=== PATIENT | female | born 2000 ===

== ENCOUNTER 2023-06-08 19:26 | Emergency (ER) | payer MEDICAID, SELFPAY ==
[2023-06-08 19:45] VITALS: BP 125/70; PULSE 92; RESP 18; TEMP 36.9; O2SAT 100; BMI 42.0
--- NOTE | 2023-06-08 20:06 | ED_ITS ---
HPI - Animal Bite General Chief Complaint: Animal Bite Stated Complaint: was bitten on both hands by thumb, numbness Time Seen by Provider: 06/08/23 19:49 Source: patient Mode of arrival: ambulatory Limitations: no limitations History of Present Illness HPI narrative: patient comes to the emergency room complaining of dog bites to both hands. Earlier today, patient was doing laundry, and patient reached down to grab the basket, the dog attacked her and bit her in both hands. Patient states that she recently moved to the house with a dog lives. The dog belongs to the patient's cousin. The dog has history of aggression and has bitten multiple people in the past. Patient states that she does not remember when she had her last tetanus shot. patient's cousin is at bedside who is the dog funeral director/embalmer/owner. The dog is up-to-date with all of the immunizations including rabies. Related Data Previous Rx's Medication Instructions Recorded amoxicillin 500 mg-potassium 1 tab PO BID #13 tabs 06/08/23 clavulanate 125 mg tablet (Augmentin) ibuprofen 600 mg tablet 600 mg PO TID PRN fever or pain 06/08/23 #20 tabs neomycin-bacitracn Zn-polymyx 3.5 1 appl topical TID #28.3 grams 06/08/23 mg-400 unit-5,000 unit/gram top oint (Neosporin ([id number])) Allergies Allergy/AdvReac Type Severity Reaction Status Date / Time No Known Allergies Allergy Verified 06/08/23 19:56 Review of Systems Review of Systems: Constitutional : No Weight loss, No Fever, No Chills, No Night Sweats, No Fatigue, No Malaise ENT/Mouth : No Hearing loss, No Ear Pain, No Nasal Congestion, No Sinus Pain, No Hoarseness, No sore throat, No Rhinorrhea, No Swallowing Difficulty Eyes: No Eye Pain, No Swelling, No Redness, No Foreign Body, No Discharge, No Vision Changes Cardiovascular : No Chest Pain, No SOB, No Dyspnea on Exertion, No Orthopnea, No Edema, No Palpitations Respiratory : No Cough, No Sputum, No Wheezing, No Smoke Exposure, No Dyspnea Gastrointestinal : No Nausea, No Vomiting, No Diarrhea, No Constipation, No abdominal Pain, No Hematochezia, No Melena Genitourinary : no irregular bleeding, No Dysuria, No Urinary Frequency, No Hematuria, No Urinary Incontinence, No Urgency, No Flank Pain, No Urinary Flow Changes, No Hesitancy Musculoskeletal : No joint pain, No Myalgias, No Joint Swelling Skin : Multiple skin bites to dorsum and palmar aspects of both hands Neuro : No Weakness, No Numbness, No Paresthesias, No Loss of Consciousness, No Dizziness, No Headache Psych : No Anxiety/Panic, No Depression, No SI/HI/AH/VH, No Social Issues, Heme/Lymph: No Bruising, No Bleeding,No Lymphadenopathy Endocrine : No Polyuria, No Polydipsia, No Temperature Intolerance [facility] Social History Social History Alcohol intake: never Smoked in Last 30 Days: No Use of substances other than those prescribed or required for medical reasons: No Advance Directives: No Advance Directives Information Provided: No Physical Exam ED Vital Signs: Vital Signs - 24 hr 06/08/23 19:45 Temperature 98.4 F Pulse Rate 92 Respiratory Rate 18 Blood Pressure 125/70 Pulse Oximetry 100 Oxygen Delivery Method Room Air BMI result Body Mass Index 42.0 Const Other: Appearance: Alert. Oriented X3. No acute distress. Eyes: Pupils equal, round and reactive to light. ENT: Pharynx normal. Neck: Normal inspection. Neck supple. No lymph nodes noted. No crepitus CVS: Normal heart rate and rhythm. Pulses normal. Normal S1 and S2 Respiratory: No respiratory distress. Breath sounds normal. No Wheezing. No rales Abdomen: Soft and nontender. No rigidity. No distention. Skin: multiple dog bites/puncture wounds to the dorsum and power rasp of both hands Extremities: No lower extremity edema. No Lacerations. No Rash Neuro: Oriented X 3. No motor deficit. No sensory deficit. Moving all extremities. No slurred speech. CN 2 through 12 grossly intact Psych: calm, cooperative, normal affect Course Course Course Narrative: - discussed with the patient that she will need antibiotics, 1st dose of Augmentin given in the emergency room, Tdap booster - patient's hands will be thoroughly cleaned, discussed with the patient that stitches are not indicated for wounds in the hands since this considered a contaminated wound Medications Administered Discontinued Medications Generic Name Dose Route Start Last Admin Trade Name Freq PRN Reason Stop Dose Admin Amoxicillin/Clavulanate Potassium 875 mg 06/08/23 20:06 06/08/23 20:15 Amoxicillin/Potassium Clav 875 Mg Tablet PO 06/08/23 20:07 875 mg ONCE ONE Administration Diphtheria/Tetanus/Acell Pertussis 0.5 ml 06/08/23 19:56 06/08/23 20:15 Diphth,Pertus(Acell),Tet Adult 0.5 Ml Syringe IM 06/08/23 19:57 0.5 ml .ONCE ONE Administration Tramadol HCl 50 mg 06/08/23 20:01 06/08/23 20:14 Tramadol Hcl 50 Mg Tablet PO 06/08/23 20:02 50 mg ONCE ONE Administration Discharge Plan Discharge Clinical Impression: Dog bite Patient Disposition: Home, Self-Care Instructions: Animal Bite (ED) Additional Instructions: if you see any signs of infections including redness, pus drainage, fever or chills, please return to the emergency room, it is likely that you will have to be admitted if this is the case. Make sure that you finish taking the entire course of antibiotics. Please follow-up with your primary care physician tomorrow. If you have any worsening or new symptoms, please return to the emergency room or call 911 Prescriptions: New amoxicillin-pot clavulanate [Augmentin] 500-125 mg tablet 1 tab PO BID Qty: 13 0RF ibuprofen 600 mg tablet 600 mg PO TID PRN (Reason: fever or pain) Qty: 20 0RF Neosporin ([id number]-[id number]-[id number]) 3.5mg-400 unit- 5,000 unit/gram ointment 1 appl topical TID Qty: 28.3 0RF
[2023-06-08] MEDS: traMADoL HCL 50 MG TABLET PO (20:14)
[2023-06-08] MEDS: Amoxicillin/Potassium Clav 875 MG TABLET PO (20:15)
[2023-06-08] MEDS: Diphth,Pertus(ACell),Tet Adult 0.5 ML SYRINGE IM (20:15)
[2023-06-08 21:30] VITALS: BP 148/86; PULSE 100; O2SAT 96
[2023-06-08 21:31] VITALS: BP 138/82; PULSE 89; RESP 18; TEMP 36.9; O2SAT 99
--- NOTE | 2023-06-08 21:31 | PC.NURSE ---
[facility] [employer] notified of dog bite via fax. Patient received tetanus vaccine at ED, patient refused series of rabies vaccines d/t per patient's cousin/dog enrollment management director's report dog's vaccines are up to date.
== END 2023-06-08 21:35 | disposition home or self-care (01) ==
PROVIDERS: Emergency Provider Emergency Medicine
DX: S61.451A Open bite of right hand, initial encounter (principal); S61.452A Open bite of left hand, initial encounter; S60.512A Abrasion of left hand, initial encounter; S60.511A Abrasion of right hand, initial encounter; W54.0XXA Bitten by dog, initial encounter; Y93.9 Activity, unspecified; Y92.9 Unspecified place or not applicable; Y99.9 Unspecified external cause status; Z23 Encounter for immunization
CPT/HCPCS: 90471; 90715; 99284

== ENCOUNTER 2023-06-11 13:59 | Outpatient (REF) | payer MEDICAID, SELFPAY ==
--- NOTE | ~2023-06-11 | XR_ITS ---
EXAMINATION: XR HAND, RIGHT CLINICAL INFORMATION: Injury. Animal bite, dog bite on palm on 06/08/2003 COMPARISON: None available. TECHNIQUE: PA, lateral, and oblique views of the right hand. FINDINGS: There is soft tissue swelling, particularly along the palmar side of the hand. The bones are intact No fracture. Minor ulnar variance is noted. Joint spaces are maintained. No erosions or soft tissue calcifications. XR/XR hand RT min 3V IMPRESSION: No acute bony abnormality.
== END 2023-06-11 14:00 | disposition home or self-care (01) ==
LOC: HO.HHCX 13:59
PROVIDERS: Visit Provider Internal Medicine
DX: S61.451D Open bite of right hand, subsequent encounter (principal); W54.0XXD Bitten by dog, subsequent encounter
CPT/HCPCS: 73130

== ENCOUNTER 2024-04-26 07:20 | Emergency (ER) | payer OTHER, SELFPAY ==
[2024-04-26 07:26] VITALS: BP 132/78; PULSE 82; RESP 16; TEMP 36.9; O2SAT 98; BMI 39.9
--- NOTE | 2024-04-26 07:38 | ED.GENADULT ---
HPI - General Adult General Chief complaint: General Medical Stated complaint: lip irritation ? allergy Time Seen by Provider: 04/26/24 07:23 Source: patient Mode of arrival: ambulatory Limitations: no limitations History of Present Illness ED Provider: ELLY SALINAS narrative: 24 yo female with no PMH here with c/o lower lip swelling and irritation with blisters on the inner lower lip and and external lip. She denies hx of HSV. She is very guarded and upset. Denies any other swelling. She denies any other blisters. States she was told by a healthcare provider yesterday that she possibly had HSV but the patient doesn't understand how this happened and wants answers. Patient thought it was apple pie she ate on . complaint: lip swelling/lesions Onset (ago): day(s) (/Sunday) Location: mouth Radiation: non-radiation Severity: mild Quality: aching Pain Consistency: intermittent Relieving factors: none Exacerbating factors: other (touching lip) Associated symptoms: denies other symptoms Treatments prior to arrival: none Related Data Previous Rx's ?Medication ?Instructions ?Recorded amoxicillin 500 mg-potassium 1 tab PO BID #13 tabs 06/08/23 clavulanate 125 mg tablet (Augmentin) ibuprofen 600 mg tablet 600 mg PO TID PRN fever or pain 06/08/23 #20 tabs neomycin-bacitracn Zn-polymyx 3.5 1 appl topical TID #28.3 grams 06/08/23 mg-400 unit-5,000 unit/gram top oint (Neosporin (bog-via-meori)) prednisone 20 mg tablet 40 mg (2 x 20 mg) PO DAILY 2 days 04/26/24 #4 tabs valacyclovir 1 gram tablet 1,000 mg PO BID #14 tabs 04/26/24 (Valtrex) Allergies Allergy/AdvReac Type Severity Reaction Status Date / Time No Known Allergies Allergy Verified 04/26/24 07:27 Review of Systems Review of Systems: Constitutional : No Fever, No Chills ENT/Mouth : No sore throat, No Rhinorrhea, pos lip swelling, pos blisters on lip Eyes: No Eye Pain, No Swelling, No Redness Cardiovascular : No Chest Pain, No SOB Respiratory : No Cough, No Sputum Gastrointestinal : No Nausea, No Vomiting, No Diarrhea, No abdominal Pain Skin : No Skin Lesions, no skin rash Neuro : No Weakness, No Numbness, No Headache All other systems reviewed and are negative [facility] Past Medical History Attestation statement: The following information was validated with the patient. Source: old records reviewed Medical History No pertinent past medical history Social History Social History (Updated 04/26/24 @ 07:45 by Adelina Genao DO) Alcohol intake: never Patient Tobacco Use Status: Never used Tobacco Physical Exam ED Vital Signs: Vital Signs - 24 hr 04/26/24 07:26 Temperature 98.4 F Pulse Rate 82 Respiratory Rate 16 Blood Pressure 132/78 Pulse Oximetry 98 Oxygen Delivery Method Room Air BMI result Body Mass Index 39.9 Appearance: Alert. Oriented X3. No acute distress. Eyes: Pupils equal, round and reactive to light. ENT: lower lip moderate swelling external crusting yellow vesicle x 3 midline of lip on the inside there is a patch of vesicles as well - no signs of cellulitis or purulence Neck: Normal inspection. CVS: Pulses normal. Respiratory: No respiratory distress. Abdomen: atraumatic Skin: Skin warm and dry. Normal skin color. Extremities: No lower extremity edema. Neuro: Oriented X 3. No motor deficit. No sensory deficit. Medical Decision Making Medical Decision Making [facility] Narrative: 24 yo female with no sig PMH here with herpetic lesions and localized swelling to bottom lip no resp issues - her exam and history is consistent with HSV at this time will start on low dose steroid for swelling, valtrex she is asking to be tested for HSV - she is very upset she has now been told by two healthcare providers she has HSV. I did try to offer support and educate patient about diagnosis while she was here. Differential Diagnosis Differential Diagnoses: The differential diagnosis associated with the presentation includes localized reaction, HSV Lab Data [facility] Lab Attestation statement: I reviewed the patient's lab results. Prescription Management I considered prescription management with: Antiviral and Other Discharge Plan Discharge Clinical Impression: Blister of lip, Oral herpes simplex infection Patient Disposition: Home, Self-Care Instructions: Oral Herpes Simplex Virus Infections (ED), Blister (ED) Additional Instructions: your presentation is concerning for herpes simplex infection of the mouth this is contagious when vesicles are out and until they are healed. you are also contagious if you get symptoms leading up to vesicles (blisters) such as a fever, lip pain tingling or swelling. you need to get a primary care doctor to help manage this. you may never get another eruption again or you may have more in the future. return for worsening symptoms, swelling, or any other concerns Prescriptions: New valacyclovir [Valtrex] 1 gram tablet 1,000 mg PO BID Qty: 14 0RF prednisone 20 mg tablet 40 mg PO DAILY 2 Days Qty: 4 0RF No Action amoxicillin-pot clavulanate [Augmentin] 500-125 mg tablet 1 tab PO BID Qty: 13 0RF ibuprofen 600 mg tablet 600 mg PO TID PRN (Reason: fever or pain) Qty: 20 0RF Neosporin (mzb-bdj-tikct) 3.5mg-400 unit- 5,000 unit/gram ointment 1 appl topical TID Qty: 28.3 0RF Interventions: ED Discharge Assessment Last Done: 04/26/24 07:45 Print Language: Polish
[2024-04-26 07:45] VITALS: BP 132/78; PULSE 82; RESP 16; TEMP 36.9; O2SAT 98
== END 2024-04-26 07:47 | disposition home or self-care (01) ==
PROVIDERS: Emergency Provider Emergency Medicine
DX: B00.1 Herpesviral vesicular dermatitis (principal)
CPT/HCPCS: 87255; 99282; 99283